=== PATIENT | male | born 1940 | race Two or more races ===

== ENCOUNTER 2024-07-17 12:47 | Inpatient (IN) | payer OTHER ==
[~2024-07-17] VITALS: Ht 152.4 cm; Wt 59.9 kg
[2024-07-17] MEDS ORDERED: TENORMIN100 M1 PO (13:47)
[2024-07-17] MEDS ORDERED: DILTIAZEM 24HR240 MG PO (13:47)
[2024-07-17] MEDS ORDERED: LASIX20 MG PO (13:48)
[2024-07-17] MEDS ORDERED: DOXAZOSIN MESYLA2 MG PO (13:48)
[2024-07-17] MEDS ORDERED: FOSINOPRIL SODI20 MG PO (13:48)
[2024-07-17] MEDS ORDERED: GLIMEPIRIDE4 MG (13:48)
[2024-07-17] MEDS ORDERED: CLOTRIMAZOLE-BE15 G1 TP (13:49)
[2024-07-17] MEDS ORDERED: PEPCID AC20 MG PO (13:49)
[2024-07-17] MEDS ORDERED: GLUMETZA500 MG PO (13:50)
--- NOTE | 2024-07-17 13:50 | NUR ---
PTE ALERTA Y ORIENTADO X3 EN COMPANIA DE FAMILIAR QUIEN REFIERE PTE CLAY ESTADO CON MALESTAR ESTOMACAL, SENSACION DE PESADEZ Y DEBILIDAD DESDE HACE UNOS TUCKER. FAMILIAR NOTIFICA PRESION BAJA EN HOGAR Y AZUCAR CHELSI. AL MOMENTO DE TRIAGE BP RESULTA 80/50 Y DXT 277. SE MIDEN SV Y SE REALIZA EKG POR PROTOCOLO DE TRIAGE. SE PRESENTA A DR. ELAINE.
[2024-07-17] MEDS ORDERED: FAMOTIDINE/PF 20 MG/2 ML VIAL IV ONE (14:45)
[2024-07-17] MEDS ORDERED: 0.9 % SODIUM CHLORIDE 250 ML IV ONE (14:45)
[2024-07-17] MEDS ORDERED: ONDANSETRON HCL 2 MG/ML VIAL IV ONE (14:45)
[2024-07-17 15:08] LABS: HEMATOCRIT 27.7 % (39.0-48.0); HEMOGLOBIN 9.3 g/dL (13-16.00); MEAN CORPUSCULAR HEMOGLOBIN 30.9 pg (27.00-32.0); MEAN CORPUSCULAR HGB CONC 33.6 g/dl (32.0-36.0); PLATELET COUNT 230 K/uL (150-450); RED BLOOD COUNT 3.01 M/uL (4.00-6.00); RED CELL DISTRIBUTION WIDTH 13.5 % (11.5-14.5)
--- NOTE | 2024-07-17 15:28 | NUR ---
SE ORIENTA A FAMILIAR SOBRE [place] MEDICO, REFIERE ENTENDER. SE REALIZAN MUESTRAS DE LABORATORIO BAJO MEDIDAS ASEPTICAS. SE ADMINISTRAN MEDICAMENTOS BEULAH ORDEN MEDICA. SE COORDINA NABILA X. PACIENTE MANEJADO POR Y MR.DEL [place]. SE CONECTA A MONITOR CARDIACO Y OXIMETRIA DE PULSO
[2024-07-17 15:33] LABS: INR 0.99; PARTIAL THROMBOPLASTIN TIME 20.5 SECONDS (22.0-34.0); PROTHROMBIN TIME 10.8 SECONDS (9.0-11.5)
[2024-07-17 15:49] LABS: ALBUMIN 2.5 gm/dL (3.4-5.0); BILIRUBIN TOTAL 0.39 mg/dL (0.3-1.2); CREATININE SERUM 1.82 mg/dL (0.70-1.30); GFR 35.75; GLOBULINA 2.8 G/DL (2.4-3.5); POTASSIUM 4.85 mEq/L (3.5-5.1); TOTAL PROTEIN 5.3 gm/dL (6.4-8.2)
[2024-07-17] MEDS ORDERED: GLUCAGON 1 MG VIAL IV ONE (16:45)
[2024-07-17 17:52] LABS: URINE APPEARANCE Clear; URINE BILIRRUBIN Negative (NEGATIVE); URINE BLOOD Negative; URINE COLOR Yellow; URINE GLUCOSE Negative (NEGATIVE); URINE KETONE Negative (NEGATIVE); URINE LEUKOCYTE Small; URINE NITRATE Negative; URINE PROTEIN Negative (NEGATIVE)
[2024-07-17 17:55] LABS: URINE BACTERIA 54.1 uL (0.0-1933); URINE CAST 15.72 uL (0.0-1.40); URINE RBC 3.2 uL (0.0-20.8); URINE WBC 5.8 uL (0.0-23.2)
[2024-07-17] MEDS ORDERED: PANTOPRAZOLE SODIUM 40 MG/VIAL VIAL IV SCH (18:21)
[2024-07-17] MEDS ORDERED: 0.9 % SODIUM CHLORIDE 1,000 ML IV SCH (18:30)
[2024-07-17] MEDS ORDERED: ONDANSETRON HCL 4 MG in 0.9 % SODIUM CHLORIDE 50 ML IV PRN (18:30)
[2024-07-17] MEDS ORDERED: DEXTROSE 50 % IN WATER 0.5 G/ML DISP.SYRIN IV PRN (18:30)
[2024-07-17] MEDS ORDERED: INSULIN LISPRO 1,000 UNIT/10 ML UNITS SUBCUTANEO PRN (18:30)
[2024-07-17 19:49] VITALS: BP 115/54; O2SAT 99
[2024-07-17 23:34] VITALS: BP 109/54; O2SAT 97
[2024-07-18 03:30] VITALS: BP 98/55
[2024-07-18 05:35] VITALS: O2SAT 97
[2024-07-18 07:12] LABS: CALCIUM 7.9 mg/dL (8.5-10.1); CREATININE SERUM 1.38 mg/dL (0.70-1.30); GFR 49.21; POTASSIUM 4.02 mEq/L (3.5-5.1); TSH 0.49 uIU/mL (0.358-3.74)
[2024-07-18] MEDS ORDERED: RINGERS SOLUTION,LACTATED 1,000 ML IV SCH (09:30)
[2024-07-18 09:35] VITALS: BP 108/68; O2SAT 96
[2024-07-18 17:33] VITALS: O2SAT 95
[2024-07-18 18:27] VITALS: BP 132/71; O2SAT 96
[2024-07-18 19:47] VITALS: O2SAT 97
[2024-07-19] VITALS (8 sets, daily range): BP systolic 124–133; BP diastolic 64–84; O2SAT 90–98
[2024-07-19 06:49] LABS: MEAN CELL VOLUME 89.6 fL (80.0-100.00); MEAN CORPUSCULAR HGB CONC 35.4 g/dl (32.0-36.0); PLATELET COUNT 158 K/uL (150-450); RED BLOOD COUNT 2.23 M/uL (4.00-6.00); RED CELL DISTRIBUTION WIDTH 13.5 % (11.5-14.5)
[2024-07-19 06:50] LABS: MEAN CORPUSCULAR HEMOGLOBIN 31.8 pg (27.00-32.0)
[2024-07-19 07:01] LABS: HEMOGLOBIN 7.1 g/dL (13-16.00)
[2024-07-19 07:12] LABS: BILIRUBIN TOTAL 0.46 mg/dL (0.3-1.2); CALCIUM 7.8 mg/dL (8.5-10.1); CREATININE SERUM 0.98 mg/dL (0.70-1.30); GFR 73.04; GLOBULINA 2.4 G/DL (2.4-3.5); MAGNESIUM 1.8 mg/dL (1.8-2.4); PHOSPHOROUS 2.1 mg/dL (2.5-4.9); POTASSIUM 3.28 mEq/L (3.5-5.1); TOTAL PROTEIN 4.4 gm/dL (6.4-8.2)
[2024-07-19] MEDS ORDERED: FUROsemide 20 MG/2 ML VIAL IV SCH (07:15)
[2024-07-19] MEDS ORDERED: POTASSIUM BICARBONATE/CIT AC 25 MEQ TABLET.EFF PO NR (11:00)
[2024-07-19] MEDS ORDERED: POTASSIUM PHOS,M-BASIC-D-BASIC 15 MM in 0.9 % SODIUM CHLORIDE 250 ML IV ONE (12:00)
[2024-07-19] MEDS ORDERED: SUCRALFATE 1 G TABLET PO SCH (13:00)
[2024-07-19] MEDS ORDERED: AMINO ACIDS/PROTEIN HYDROLYS 30 ML BLIST.PACK PO SCH (13:00)
[2024-07-19] MEDS ORDERED: IRON FUM,PS/FOLIC/BCOMP,C NO.9 1 CAP CAPSULE PO SCH (17:00)
[2024-07-19] MEDS ORDERED: POTASSIUM BICARBONATE/CIT AC 25 MEQ TABLET.EFF PO SCH (17:00)
[2024-07-19] MEDS ORDERED: CYANOCOBALAMIN (VITAMIN B-12) 1,000 MCG TABLET PO SCH (17:00)
[2024-07-19] MEDS ORDERED: PANTOPRAZOLE SODIUM 40 MG/VIAL VIAL IV SCH (21:00)
[2024-07-20] VITALS (10 sets, daily range): BP systolic 133–188; BP diastolic 64–89; O2SAT 94–98
[2024-07-20] MEDS ORDERED: INSULIN LISPRO 1,000 UNIT/10 ML UNITS SUBCUTANEO PRN (05:45)
[2024-07-20 09:11] LABS: MEAN CELL VOLUME 92.5 fL (80.0-100.00); PLATELET COUNT 157 K/uL (150-450); RED BLOOD COUNT 2.38 M/uL (4.00-6.00)
[2024-07-20 09:24] LABS: BILIRUBIN TOTAL 0.43 mg/dL (0.3-1.2); CALCIUM 7.9 mg/dL (8.5-10.1); CREATININE SERUM 0.92 mg/dL (0.70-1.30); GFR 78.57; GLOBULINA 2.4 G/DL (2.4-3.5); POTASSIUM 4.38 mEq/L (3.5-5.1); TOTAL PROTEIN 4.4 gm/dL (6.4-8.2)
[2024-07-20 11:13] LABS: MEAN CORPUSCULAR HEMOGLOBIN 31.5 pg (27.00-32.0)
[2024-07-20 11:28] LABS: HEMOGLOBIN 7.5 g/dL (13-16.00)
[2024-07-20] MEDS ORDERED: LOSARTAN POTASSIUM 25 MG TABLET PO NR (12:00)
[2024-07-20] MEDS ORDERED: METOPROLOL SUCCINATE 25 MG TAB.SR.24H PO NR (12:00)
[2024-07-20] MEDS ORDERED: ENALAPRILAT DIHYDRATE 1.25 MG/ML VIAL IV PRN (23:30)
[2024-07-21] VITALS (9 sets, daily range): BP systolic 150–171; BP diastolic 78–87; O2SAT 96–98
[2024-07-21] MEDS ORDERED: IRBESARTAN 150 MG TABLET PO SCH (09:00)
[2024-07-21] MEDS ORDERED: LOSARTAN POTASSIUM 25 MG TABLET PO SCH (09:00)
[2024-07-21] MEDS ORDERED: METOPROLOL SUCCINATE 25 MG TAB.SR.24H PO SCH (09:00)
[2024-07-21] MEDS ORDERED: METOPROLOL SUCCINATE 25 MG TAB.SR.24H PO STA (12:35)
[2024-07-21] MEDS ORDERED: INSULIN GLARGINE,HUM.REC.ANLOG 1,000 UNITS/10 ML UNITS SUBCUTANEO STA (22:12)
[2024-07-22] VITALS (9 sets, daily range): BP systolic 137–155; BP diastolic 78–86; O2SAT 90–98
[2024-07-22 01:35] LABS: CHOL HDL RATIO 2.4 (0-5.0)
[2024-07-22] MEDS ORDERED: IRBESARTAN 300 MG TABLET PO SCH (09:00)
[2024-07-22] MEDS ORDERED: METOPROLOL SUCCINATE 50 MG TAB.SR.24H PO SCH (09:00)
[2024-07-22 13:49] LABS: HEMATOCRIT 28.7 % (39.0-48.0); MEAN CELL VOLUME 90.4 fL (80.0-100.00); MEAN CORPUSCULAR HEMOGLOBIN 31.5 pg (27.00-32.0); MEAN CORPUSCULAR HGB CONC 34.7 g/dl (32.0-36.0); PLATELET COUNT 173 K/uL (150-450); RED BLOOD COUNT 3.17 M/uL (4.00-6.00); RED CELL DISTRIBUTION WIDTH 14.3 % (11.5-14.5)
[2024-07-22 14:45] LABS: ALBUMIN 1.9 gm/dL (3.4-5.0); BILIRUBIN TOTAL 0.9 mg/dL (0.3-1.2); CALCIUM 7.7 mg/dL (8.5-10.1); CREATININE SERUM 1.05 mg/dL (0.70-1.30); GFR 67.45; GLOBULINA 2.8 G/DL (2.4-3.5); POTASSIUM 3.4 mEq/L (3.5-5.1); TOTAL PROTEIN 4.7 gm/dL (6.4-8.2)
[2024-07-22] MEDS ORDERED: AA 4.25%/CAL/LYTES/DEXT 5% 1,000 ML PERIFERAL SCH (17:00)
[2024-07-22] MEDS ORDERED: POTASSIUM CHLORIDE 20MEQ/100ML H2O PB IV ONE (20:00)
[2024-07-22] MEDS ORDERED: INSULIN GLARGINE,HUM.REC.ANLOG 1,000 UNITS/10 ML UNITS SUBCUTANEO SCH (21:00)
[2024-07-23] VITALS (7 sets, daily range): BP systolic 145–158; BP diastolic 80–85; O2SAT 95–97
[2024-07-23] MEDS ORDERED: AMLODIPINE BESYLATE 5 MG TABLET PO SCH (09:00)
[2024-07-24] VITALS (8 sets, daily range): BP systolic 143–151; BP diastolic 80–84; O2SAT 95–98
[2024-07-24 06:05] LABS: HEMATOCRIT 28.4 % (39.0-48.0); MEAN CORPUSCULAR HEMOGLOBIN 31.6 pg (27.00-32.0); MEAN CORPUSCULAR HGB CONC 35.1 g/dl (32.0-36.0); PLATELET COUNT 205 K/uL (150-450); RED BLOOD COUNT 3.16 M/uL (4.00-6.00); RED CELL DISTRIBUTION WIDTH 14.6 % (11.5-14.5)
[2024-07-24 06:52] LABS: ALBUMIN 1.8 gm/dL (3.4-5.0); BILIRUBIN TOTAL 0.52 mg/dL (0.3-1.2); CREATININE SERUM 0.8 mg/dL (0.70-1.30); GFR 92.32; GLOBULINA 2.7 G/DL (2.4-3.5); POTASSIUM 3.46 mEq/L (3.5-5.1); TOTAL PROTEIN 4.5 gm/dL (6.4-8.2)
[2024-07-24] MEDS ORDERED: POTASSIUM CHLORIDE 20MEQ/100ML H2O PB IV NR (11:00)
[2024-07-25] VITALS (9 sets, daily range): BP systolic 151–159; BP diastolic 83–90; O2SAT 95–98
[2024-07-25] MEDS ORDERED: INSULIN NPH HUMAN ISOPHANE 1,000 UNITS/10 ML UNITS SUBCUTANEO SCH ×2 (09:00→21:00)
[2024-07-25 10:42] LABS: HEMATOCRIT 31.3 % (39.0-48.0); HEMOGLOBIN 10.8 g/dL (13-16.00); MEAN CORPUSCULAR HEMOGLOBIN 31.6 pg (27.00-32.0); MEAN CORPUSCULAR HGB CONC 34.7 g/dl (32.0-36.0); PLATELET COUNT 231 K/uL (150-450); RED BLOOD COUNT 3.43 M/uL (4.00-6.00); RED CELL DISTRIBUTION WIDTH 14.6 % (11.5-14.5)
[2024-07-25 11:10] LABS: CALCIUM 8.6 mg/dL (8.5-10.1); CREATININE SERUM 0.82 mg/dL (0.70-1.30); GFR 89.73; MAGNESIUM 1.9 mg/dL (1.8-2.4); POTASSIUM 3.93 mEq/L (3.5-5.1)
[2024-07-25] MEDS ORDERED: MIDAZOLAM HCL 2 MG/2 ML VIAL IV ONE (12:00)
[2024-07-25] MEDS ORDERED: PANTOPRAZOLE SODIUM 40 MG TABLET.DR PO SCH (20:32)
[2024-07-26] VITALS (7 sets, daily range): BP systolic 145–154; BP diastolic 77–85; O2SAT 95–100
[2024-07-26] MEDS ORDERED: CEFTRIAXONE SODIUM 2,000 MG VIAL IV SCH (12:00)
[2024-07-26 12:59] LABS: ob NEGATIVE (NEGATIVE)
[2024-07-27] VITALS (9 sets, daily range): BP systolic 140–148; BP diastolic 75–82; O2SAT 95–99
[2024-07-27 08:18] LABS: HEMATOCRIT 28.6 % (39.0-48.0); MEAN CELL VOLUME 89.8 fL (80.0-100.00); MEAN CORPUSCULAR HEMOGLOBIN 31.3 pg (27.00-32.0); MEAN CORPUSCULAR HGB CONC 34.9 g/dl (32.0-36.0); PLATELET COUNT 196 K/uL (150-450); RED BLOOD COUNT 3.19 M/uL (4.00-6.00); RED CELL DISTRIBUTION WIDTH 14.5 % (11.5-14.5)
[2024-07-27 08:47] LABS: ALBUMIN 1.9 gm/dL (3.4-5.0); BILIRUBIN TOTAL 0.29 mg/dL (0.3-1.2); CALCIUM 8.2 mg/dL (8.5-10.1); CREATININE SERUM 0.92 mg/dL (0.70-1.30); GFR 78.57; GLOBULINA 2.9 G/DL (2.4-3.5); POTASSIUM 4.37 mEq/L (3.5-5.1); TOTAL PROTEIN 4.8 gm/dL (6.4-8.2)
[2024-07-27] MEDS ORDERED: DIATRIZOATE MEGLUMINE, SODIUM 30 ML BOTTLE PO NR (10:45)
[2024-07-28] VITALS (9 sets, daily range): BP systolic 156–159; BP diastolic 80–81; O2SAT 96–99
[2024-07-28] MEDS ORDERED: INSULIN NPH HUMAN ISOPHANE 1,000 UNITS/10 ML UNITS SUBCUTANEO SCH (21:00)
[2024-07-29] VITALS (7 sets, daily range): BP systolic 142–144; BP diastolic 83–84; O2SAT 94–100
[2024-07-29 06:55] LABS: HEMATOCRIT 29.7 % (39.0-48.0); HEMOGLOBIN 10.3 g/dL (13-16.00); MEAN CELL VOLUME 90.9 fL (80.0-100.00); MEAN CORPUSCULAR HEMOGLOBIN 31.6 pg (27.00-32.0); MEAN CORPUSCULAR HGB CONC 34.8 g/dl (32.0-36.0); PLATELET COUNT 204 K/uL (150-450); RED BLOOD COUNT 3.27 M/uL (4.00-6.00); RED CELL DISTRIBUTION WIDTH 14.3 % (11.5-14.5)
[2024-07-29 07:28] LABS: BILIRUBIN TOTAL 0.33 mg/dL (0.3-1.2); CALCIUM 8.4 mg/dL (8.5-10.1); CREATININE SERUM 0.92 mg/dL (0.70-1.30); GFR 78.57; GLOBULINA 2.7 G/DL (2.4-3.5); MAGNESIUM 1.9 mg/dL (1.8-2.4); POTASSIUM 4.52 mEq/L (3.5-5.1); TOTAL PROTEIN 4.7 gm/dL (6.4-8.2)
[2024-07-29] MEDS ORDERED: INSULIN NPH HUM/REG INSULIN HM 1,000 UNIT/10 ML UNITS SUBCUTANEO SCH (08:00)
[2024-07-29] MEDS ORDERED: INSULIN NPH HUMAN ISOPHANE 1,000 UNITS/10 ML UNITS SUBCUTANEO SCH (09:00)
[2024-07-29] MEDS ORDERED: LEVOFLOXACIN250 MG PO (14:34)
[2024-07-29] MEDS ORDERED: INTESTINEX680 M1 PO (14:35)
[2024-07-29] MEDS ORDERED: TOPROL XL50 M1 PO (14:35)
[2024-07-29] MEDS ORDERED: AVAPRO300 MG PO (14:35)
[2024-07-29] MEDS ORDERED: AMLODIPINE BESYL5 MG PO (14:35)
[2024-07-29] MEDS ORDERED: INTEGRA PLUS C1 EACH PO (14:35)
[2024-07-29] MEDS ORDERED: PANTOPRAZOLE SO40 MG PO (14:36)
[2024-07-29] MEDS ORDERED: VITAMIN B-121000 MCG PO (14:37)
[2024-07-29] MEDS ORDERED: CARAFATE1 GM PO (14:37)
[2024-07-29] MEDS ORDERED: PROTEINEX-18 LI30 ML PO (14:37)
== END 2024-07-29 16:25 | disposition home or self-care (01) | DRG 309 ==
LOC: ER 12:49 → EDBD 18:55 → MEDJ 18:55
PROVIDERS: General Practice; Internal Medicine; Nurse Practitioner Family; ADMIT Internal Medicine; ATTEND Internal Medicine
PROC: BW24ZZZ Computerized Tomography (CT Scan) of Chest and Abdomen (ICD-10-PCS; 2024-07-17)
PROC: BT4JZZZ Ultrasonography of Kidneys and Bladder (ICD-10-PCS; 2024-07-17)
PROC: B24BYZZ Ultrasonography of Heart with Aorta using Other Contrast (ICD-10-PCS; 2024-07-17)
PROC: 4A12X4Z Monitoring of Cardiac Electrical Activity, External Approach (ICD-10-PCS; 2024-07-18)
PROC: 30233N1 Transfusion of Nonautologous Red Blood Cells into Peripheral Vein, Percutaneous Approach (ICD-10-PCS; 2024-07-20)
PROC: 0BBJ3ZX Excision of Left Lower Lung Lobe, Percutaneous Approach, Diagnostic (ICD-10-PCS; principal; 2024-07-25)
PROC: 0DJ08ZZ Inspection of Upper Intestinal Tract, Via Natural or Artificial Opening Endoscopic (ICD-10-PCS; 2024-07-25)
PROC: BW21YZZ Computerized Tomography (CT Scan) of Abdomen and Pelvis using Other Contrast (ICD-10-PCS; 2024-07-26)
DX: R00.1 Bradycardia, unspecified (principal); J90 Pleural effusion, not elsewhere classified; N17.9 Acute kidney failure, unspecified; K92.2 Gastrointestinal hemorrhage, unspecified; K92.1 Melena; D64.9 Anemia, unspecified; E11.9 Type 2 diabetes mellitus without complications; Z79.4 Long term (current) use of insulin; R91.8 Other nonspecific abnormal finding of lung field; I95.9 Hypotension, unspecified; K21.9 Gastro-esophageal reflux disease without esophagitis; D72.829 Elevated white blood cell count, unspecified